=== PATIENT | male | born 1965 | race Two or more races ===

== ENCOUNTER 2023-09-11 15:05 | Emergency (ER) | payer OTHER ==
[~2023-09-11] VITALS: Ht 170.2 cm; Wt 90.7 kg
[2023-09-11 15:23] VITALS: TEMP 98
[2023-09-11] MEDS ORDERED: KETOROLAC TROMETHAMINE INJ 30 MG/ML VIAL ONE (17:22)
[2023-09-11] MEDS ORDERED: KETOROLAC TROMETHAMINE INJ 30 MG/ML VIAL IM ONE (17:30)
[2023-09-11 18:45] LABS: APPEARANCE,URINE CLEAR (CLEAR); BILIRUBIN,URINE NEGATIVE (NEGATIVE); BLOOD, URINE NEGATIVE Ery/uL (NEGATIVE); COLOR,URINE YELLOW (YELLOW); KETONES,URINE NEGATIVE (NEGATIVE); LEUKOCYTE ESTERASE ,URINE NEGATIVE (NEGATIVE); NITRITE, URINE NEGATIVE (NEGATIVE); PH,URINE 5.5 (5.0-8.0); PROTEIN,URINE TRACE mg/dl (NEGATIVE); UGLUCOSE NEGATIVE (NEGATIVE); UROBILINOGEN,URINE 0.2 EU/dL (0.2)
[2023-09-11] MEDS ORDERED: IBUP-1955 PO (20:13)
[2023-09-11] MEDS ORDERED: ACET-2605 PO (20:13)
[2023-09-11] MEDS ORDERED: LIDOCAINE 5% (PATCH) 1 EA PATCH TP ONE ×2 (20:18→20:30)
[2023-09-11 21:50] LABS: ADD URINE CULTURE NO; BACTERIA,URINE 1+ /HPF (None Seen); HYALINE CASTS, URINE Few /LPF (None Seen); MUCUS,URINE Few /LPF (None Seen); RBC,URINE NONE SEEN /HPF (0-2); SQUAMOUS EPITHELIAL CELL,UR None Seen /HPF (None Seen); WBC,URINE NONE SEEN /HPF (0-3)
[2023-09-12 03:26] VITALS: BP 105/71; O2SAT 98
== END 2023-09-12 03:26 | disposition home or self-care (01) ==
LOC: ER 16:56
DX: S22.32XA Fracture of one rib, left side, initial encounter for closed fracture (principal); S22.31XA Fracture of one rib, right side, initial encounter for closed fracture; R33.9 Retention of urine, unspecified; G89.29 Other chronic pain; I10 Essential (primary) hypertension; F41.9 Anxiety disorder, unspecified; Z79.899 Other long term (current) drug therapy; Z88.1 Allergy status to other antibiotic agents; W17.89XA Other fall from one level to another, initial encounter; Y93.89 Activity, other specified; Y92.89 Other specified places as the place of occurrence of the external cause; Y99.8 Other external cause status
CPT/HCPCS: 99284; 51702; 72100; 71111; 81001; 96372; J1885

== ENCOUNTER 2023-09-17 17:01 | Inpatient (IN) | payer OTHER ==
[~2023-09-17] VITALS: Ht 170.2 cm; Wt 77.1 kg
[~2023-09-17 17:01] MED LIST: ACET-2605 PO; IBUP-1955 PO
[2023-09-17] MEDS ORDERED: HYDROCODONE/APAP 10/325MG TABLET PO ONE (19:30)
[2023-09-17 19:31] LABS: BASOPHILS % (AUTO) 0.3 % (0.0-2.0); EOSINOPHILS # (AUTO) 0.2 K/uL (0.0-0.7); EOSINOPHILS % (AUTO) 1.5 % (0.0-6.0); HEMATOCRIT 47 % (39-51); HEMOGLOBIN 15.9 g/dL (13.5-17.5); LYMPHOCYTES # (AUTO) 2.4 K/uL (0.8-4.8); LYMPHOCYTES % (AUTO) 22.6 % (20.0-44.0); MEAN CORPUSCULAR HEMOGLOBIN 31 PG (26.0-33.0); MEAN CORPUSCULAR HGB CONC 34 g/dl (31.0-36.0); MEAN CORPUSCULAR VOLUME 92 fL (80-96); MONOCYTES # (AUTO) 0.6 K/uL (0.1-1.30); MONOCYTES % (AUTO) 5.5 % (2.0-12.0); NEUTROPHILS # (AUTO) 7.4 K/uL (1.8-8.9); NEUTROPHILS % (AUTO) 70.1 % (43.0-81.0); PLATELET COUNT (AUTO) 314 K/uL (150-450); RED BLOOD CELL COUNT(AUTO) 5.06 MIL/uL (4.5-6.0); RED CELL DISTRIBUTION WIDTH 13.1 % (11.5-15.0); WHITE BLOOD COUNT (AUTO) 10.6 K/uL (4.3-11.0)
[2023-09-17] MEDS ORDERED: HYDROCODONE/APAP 10/325MG TABLET ONE (19:51)
[2023-09-17 19:55] LABS: INR 0.96 (0.91-1.10); PARTIAL THROMBOPLASTIN TIME 29.3 SEC (24.3-34.3); PROTHROMBIN TIME 10.2 SECS (9.2-11.1)
[2023-09-17 20:22] LABS: BILIRUBIN,DIRECT 0.1 mg/dL (0.0-0.2); BILIRUBIN,TOTAL 0.5 mg/dL (0.2-1.0); CALCIUM, SERUM 9.2 mg/dL (8.5-10.1); CREATININE 0.7 mg/dL (0.6-1.3); POTASSIUM 3.4 mmol/L (3.5-5.1); TOTAL PROTEIN, SERUM 8.6 g/dL (6.4-8.2)
[2023-09-17 21:39] LABS: APPEARANCE,URINE CLEAR (CLEAR); BILIRUBIN,URINE NEGATIVE (NEGATIVE); BLOOD, URINE 2+ Ery/uL (NEGATIVE); COLOR,URINE YELLOW (YELLOW); KETONES,URINE NEGATIVE (NEGATIVE); LEUKOCYTE ESTERASE ,URINE NEGATIVE (NEGATIVE); NITRITE, URINE POSITIVE (NEGATIVE); PH,URINE 5.5 (5.0-8.0); PROTEIN,URINE TRACE mg/dl (NEGATIVE); UGLUCOSE NEGATIVE (NEGATIVE); UROBILINOGEN,URINE 0.2 EU/dL (0.2)
[2023-09-17 21:46] LABS: ADD URINE CULTURE YES; BACTERIA,URINE 1+ /HPF (None Seen); RBC,URINE 21-50 /HPF (0-2)
[2023-09-17] MEDS ORDERED: CEFTRIAXONE 1 G VIAL IM ONE (22:30)
[2023-09-17] MEDS ORDERED: ONDANSETRON HCL/PF 4 MG/2 ML VIAL IVP PRN (23:00)
[2023-09-17] MEDS ORDERED: POTASSIUM CHLORIDE 10 MEQ TABLET.SA PO ONE (23:00)
[2023-09-17] MEDS ORDERED: Z GUARD REMEDY 4 OZ OINT TP PRN (23:00)
[2023-09-17] MEDS ORDERED: HYDROMORPHONE INJ 2 MG/ML DISP.SYRIN IV PRN (23:00)
[2023-09-17] MEDS ORDERED: ACETAMINOPHEN 325 MG TABLET PO PRN (23:00)
[2023-09-17] MEDS ORDERED: MAGNESIUM HYDROXIDE 30 ML UDC PO PRN (23:00)
[2023-09-17] MEDS ORDERED: LIDOCAINE /MPF 1% VIAL 5 ML VIAL ONE (23:10)
[2023-09-17] MEDS ORDERED: CEFTRIAXONE 1 G VIAL ONE (23:10)
[2023-09-17] MEDS ORDERED: CEFTRIAXONE 1GM BAG (ER ONLY) 50 ML IV ONE (23:22)
[2023-09-17] MEDS: CEFTRIAXONE 1 G in IV D5W 50 ML IV SCH (23:25)
[2023-09-17] MEDS ORDERED: HYDROMORPHONE 1 MG/1 ML DISP.SYRIN ONE (23:48)
[2023-09-17] MEDS ORDERED: POTASSIUM CHLORIDE 10 MEQ TABLET.SA ONE (23:58)
[2023-09-17] MEDS ORDERED: GABAPENTIN 100 MG CAPSULE ONE (23:58)
[2023-09-17] MEDS ORDERED: ENOXAPARIN SODIUM 40 MG/0.4 ML DISP.SYRIN SQ ONE (23:58)
[2023-09-18] MEDS: GABAPENTIN 100 MG CAPSULE PO SCH ×4 (00:03→16:20)
[2023-09-18] MEDS: ENOXAPARIN SODIUM 40 MG/0.4 ML DISP.SYRIN SQ SCH ×2 (00:08→20:05)
[2023-09-18] MEDS: NICOTINE PATCH (21MG) 21 MG PATCH.TD24 TD SCH ×2 (02:06→09:00)
[2023-09-18] MEDS ORDERED: HYDROMORPHONE 1 MG/1 ML DISP.SYRIN ONE ×2 (04:03→08:36)
[2023-09-18] MEDS ORDERED: HYDROMORPHONE 1 MG/1 ML DISP.SYRIN IV PRN (07:30)
[2023-09-18] MEDS: PANTOPRAZOLE 40 MG TABLET.DR PO SCH (08:30)
[2023-09-18] MEDS ORDERED: GABAPENTIN 100 MG CAPSULE ONE (08:33)
[2023-09-18] MEDS ORDERED: PANTOPRAZOLE 40 MG TABLET.DR PO ONE (08:34)
[2023-09-18] MEDS ORDERED: AMLO5TAB4 PO (08:45)
[2023-09-18] MEDS ORDERED: LORA-258 PO (08:45)
[2023-09-18 09:11] LABS: BASOPHILS % (AUTO) 0.5 % (0.0-2.0); EOSINOPHILS # (AUTO) 0.1 K/uL (0.0-0.7); EOSINOPHILS % (AUTO) 1.6 % (0.0-6.0); HEMATOCRIT 40 % (39-51); HEMOGLOBIN 13.7 g/dL (13.5-17.5); LYMPHOCYTES # (AUTO) 2.3 K/uL (0.8-4.8); LYMPHOCYTES % (AUTO) 27.8 % (20.0-44.0); MEAN CORPUSCULAR HEMOGLOBIN 32 PG (26.0-33.0); MEAN CORPUSCULAR HGB CONC 34 g/dl (31.0-36.0); MEAN CORPUSCULAR VOLUME 92 fL (80-96); MONOCYTES # (AUTO) 0.8 K/uL (0.1-1.30); MONOCYTES % (AUTO) 9.4 % (2.0-12.0); NEUTROPHILS % (AUTO) 60.7 % (43.0-81.0); PLATELET COUNT (AUTO) 245 K/uL (150-450); RED BLOOD CELL COUNT(AUTO) 4.34 MIL/uL (4.5-6.0); WHITE BLOOD COUNT (AUTO) 8.2 K/uL (4.3-11.0)
[2023-09-18 09:21] LABS: CALCIUM, SERUM 9.1 mg/dL (8.5-10.1); CREATININE 0.7 mg/dL (0.6-1.3); MAGNESIUM 1.7 mg/dL (1.8-2.4); PHOSPHORUS 2.6 mg/dL (2.5-4.9)
[2023-09-18] MEDS ORDERED: LORAZEPAM 0.5 MG TABLET PO PRN (10:30)
[2023-09-18] MEDS: BACLOFEN (10 MG) 10 MG TABLET PO SCH ×2 (12:42→16:20)
[2023-09-18] MEDS: HYDROMORPHONE 1 MG/1 ML DISP.SYRIN IV PRN ×3 (13:24→21:47)
[2023-09-18 15:49] VITALS: BP 159/87; TEMP 99; O2SAT 95
[2023-09-18 20:00] VITALS: BP 120/82; TEMP 98; O2SAT 96
[2023-09-18] MEDS ORDERED: POTASSIUM CHLORIDE 20 MEQ TAB.PRT.SR PO ONE (20:00)
[2023-09-18] MEDS: CEFTRIAXONE 1 G in IV D5W 50 ML IV SCH (20:37)
[2023-09-19] MEDS: HYDROMORPHONE 1 MG/1 ML DISP.SYRIN IV PRN ×5 (01:47→21:11)
[2023-09-19 07:10] LABS: CALCIUM, SERUM 9.5 mg/dL (8.5-10.1); CREATININE 0.7 mg/dL (0.6-1.3); POTASSIUM 3.6 mmol/L (3.5-5.1)
[2023-09-19 07:17] LABS: BASOPHILS % (AUTO) 0.7 % (0.0-2.0); EOSINOPHILS # (AUTO) 0.2 K/uL (0.0-0.7); EOSINOPHILS % (AUTO) 2.9 % (0.0-6.0); HEMATOCRIT 38 % (39-51); HEMOGLOBIN 13.1 g/dL (13.5-17.5); LYMPHOCYTES # (AUTO) 2.2 K/uL (0.8-4.8); LYMPHOCYTES % (AUTO) 32.4 % (20.0-44.0); MEAN CORPUSCULAR HEMOGLOBIN 32 PG (26.0-33.0); MEAN CORPUSCULAR HGB CONC 35 g/dl (31.0-36.0); MEAN CORPUSCULAR VOLUME 92 fL (80-96); MONOCYTES # (AUTO) 0.8 K/uL (0.1-1.30); NEUTROPHILS # (AUTO) 3.5 K/uL (1.8-8.9); PLATELET COUNT (AUTO) 224 K/uL (150-450); RED BLOOD CELL COUNT(AUTO) 4.12 MIL/uL (4.5-6.0); WHITE BLOOD COUNT (AUTO) 6.6 K/uL (4.3-11.0)
[2023-09-19 07:30] VITALS: BP 164/93; TEMP 98.6; O2SAT 93
[2023-09-19] MEDS: PANTOPRAZOLE 40 MG TABLET.DR PO SCH (07:53)
[2023-09-19] MEDS: GABAPENTIN 100 MG CAPSULE PO SCH ×3 (08:18→17:08)
[2023-09-19] MEDS: BACLOFEN (10 MG) 10 MG TABLET PO SCH ×3 (08:18→17:09)
[2023-09-19] MEDS: NICOTINE PATCH (21MG) 21 MG PATCH.TD24 TD SCH (08:18)
[2023-09-19] MEDS: AMLODIPINE BESYLATE 5 MG TABLET PO SCH (08:18)
[2023-09-19] MEDS: HYDROCODONE/APAP 5/325MG TABLET PO PRN ×2 (09:54→23:12)
[2023-09-19] MEDS ORDERED: CLONIDINE HCL 0.1 MG TABLET PO PRN (10:00)
[2023-09-19 20:00] VITALS: BP 136/87; TEMP 98.3; O2SAT 97
[2023-09-19] MEDS: ENOXAPARIN SODIUM 40 MG/0.4 ML DISP.SYRIN SQ SCH (20:14)
[2023-09-20] MEDS: HYDROMORPHONE 1 MG/1 ML DISP.SYRIN IV PRN ×5 (02:25→19:04)
[2023-09-20] MEDS: GABAPENTIN 100 MG CAPSULE PO SCH ×3 (08:07→16:56)
[2023-09-20] MEDS: NICOTINE PATCH (21MG) 21 MG PATCH.TD24 TD SCH (08:07)
[2023-09-20] MEDS: PANTOPRAZOLE 40 MG TABLET.DR PO SCH (08:08)
[2023-09-20] MEDS: BACLOFEN (10 MG) 10 MG TABLET PO SCH ×3 (08:08→16:55)
[2023-09-20] MEDS: AMLODIPINE BESYLATE 5 MG TABLET PO SCH (08:08)
[2023-09-20 08:36] VITALS: BP 136/97; TEMP 98.1; O2SAT 94
[2023-09-20 11:52] LABS: BASOPHILS % (AUTO) 0.3 % (0.0-2.0); EOSINOPHILS # (AUTO) 0.3 K/uL (0.0-0.7); EOSINOPHILS % (AUTO) 4.4 % (0.0-6.0); HEMATOCRIT 37 % (39-51); HEMOGLOBIN 12.8 g/dL (13.5-17.5); LYMPHOCYTES # (AUTO) 1.7 K/uL (0.8-4.8); LYMPHOCYTES % (AUTO) 28.9 % (20.0-44.0); MEAN CORPUSCULAR HEMOGLOBIN 32 PG (26.0-33.0); MEAN CORPUSCULAR HGB CONC 35 g/dl (31.0-36.0); MEAN CORPUSCULAR VOLUME 92 fL (80-96); MONOCYTES # (AUTO) 0.8 K/uL (0.1-1.30); NEUTROPHILS # (AUTO) 3.1 K/uL (1.8-8.9); NEUTROPHILS % (AUTO) 53.4 % (43.0-81.0); PLATELET COUNT (AUTO) 202 K/uL (150-450); RED CELL DISTRIBUTION WIDTH 12.9 % (11.5-15.0); WHITE BLOOD COUNT (AUTO) 5.9 K/uL (4.3-11.0)
[2023-09-20 13:19] LABS: CREATININE 0.7 mg/dL (0.6-1.3); POTASSIUM 3.4 mmol/L (3.5-5.1)
[2023-09-20] MEDS ORDERED: POTASSIUM CHLORIDE 20 MEQ TAB.PRT.SR PO ONE (14:00)
[2023-09-20 16:25] VITALS: BP 124/80; TEMP 98.1; O2SAT 95
[2023-09-20 20:00] VITALS: BP 135/89; TEMP 98.4; O2SAT 96
[2023-09-20] MEDS: CEFTRIAXONE 1 G in IV D5W 50 ML IV SCH (20:06)
[2023-09-20] MEDS: ENOXAPARIN SODIUM 40 MG/0.4 ML DISP.SYRIN SQ SCH (20:09)
[2023-09-20] MEDS: HYDROCODONE/APAP 5/325MG TABLET PO PRN (21:15)
== END 2023-09-20 23:00 | disposition short-term general hospital (02) | DRG 48 ==
LOC: ER 18:01 → TRANSITION 23:30 → MED 09-18 09:37
PROVIDERS: ADMIT Nurse Practitioner Family; ATTEND Internal Medicine
DX: G83.4 Cauda equina syndrome (principal); E87.6 Hypokalemia; F41.9 Anxiety disorder, unspecified; N39.0 Urinary tract infection, site not specified; I10 Essential (primary) hypertension; R32 Unspecified urinary incontinence; R20.2 Paresthesia of skin; G62.9 Polyneuropathy, unspecified; M62.830 Muscle spasm of back; B96.89 Other specified bacterial agents as the cause of diseases classified elsewhere; M43.16 Spondylolisthesis, lumbar region; M54.16 Radiculopathy, lumbar region; G99.2 Myelopathy in diseases classified elsewhere; Z87.891 Personal history of nicotine dependence; M96.1 Postlaminectomy syndrome, not elsewhere classified; Y83.8 Other surgical procedures as the cause of abnormal reaction of the patient, or of later complication, without mention of misadventure at the time of the procedure; Y75.8 Miscellaneous neurological devices associated with adverse incidents, not elsewhere classified; Y92.009 Unspecified place in unspecified non-institutional (private) residence as the place of occurrence of the external cause; G89.29 Other chronic pain; Z98.1 Arthrodesis status
CPT/HCPCS: 36415; 72125-TC; 72128-TC; 72131-TC; 72141-TC; 72146-TC; 72148-TC; 80048-TC; 80076-TC; 81001; 83735-TC; 84100-TC; 85025-TC; 85730-TC; 87086-TC; A4223; G0378; J0696; J1170; J1650; J2405; J3490; J7050; J7060

== ENCOUNTER 2023-09-25 10:02 | Inpatient (IN) | payer OTHER ==
[~2023-09-25] VITALS: Ht 170.2 cm; Wt 80.7 kg
[~2023-09-25 10:02] MED LIST changes: -ACET-2605 PO; +AMLO5TAB4 PO; -IBUP-1955 PO; +LORA-258 PO
[2023-09-25] MEDS ORDERED: POLYETHYLENE GLYCOL 3350 17 GM POWD.PACK PO PRN (22:00)
[2023-09-25] MEDS ORDERED: Z GUARD REMEDY 4 OZ OINT TP PRN (22:00)
[2023-09-25] MEDS ORDERED: MAG HYDROX/AL HYDROX/SIMETH 30 ML UDC PO PRN (22:00)
[2023-09-25] MEDS ORDERED: ONDANSETRON HCL/PF 4 MG/2 ML VIAL IVP PRN (22:00)
[2023-09-25] MEDS ORDERED: LACTULOSE 10 G/15 ML UDC (PYXIS) PO PRN (22:00)
[2023-09-25] MEDS ORDERED: TRAZODONE 50 MG TABLET PO PRN (22:00)
[2023-09-25] MEDS ORDERED: ZOLPIDEM TARTRATE 5 MG TABLET PO PRN (22:00)
[2023-09-25] MEDS ORDERED: ACETAMINOPHEN 325 MG TABLET PO PRN (22:00)
[2023-09-25 22:40] VITALS: BP 124/71; TEMP 98.4; O2SAT 96
[2023-09-25] MEDS: TAMSULOSIN 0.4 MG CAP.SR.24H PO SCH (22:48)
[2023-09-25] MEDS: LACTULOSE 10 G/15 ML UDC (PYXIS) PO ONE (22:48)
[2023-09-25] MEDS: HYDROMORPHONE INJ 2 MG/ML DISP.SYRIN IV PRN (23:41)
[2023-09-26] MEDS: HYDROCODONE/APAP 10/325MG TABLET PO PRN ×2 (06:29→17:14)
[2023-09-26 07:00] VITALS: BP 134/74; TEMP 96.2; O2SAT 95
[2023-09-26 07:27] LABS: BASOPHILS % (AUTO) 0.3 % (0.0-2.0); EOSINOPHILS # (AUTO) 0.2 K/uL (0.0-0.7); EOSINOPHILS % (AUTO) 2.9 % (0.0-6.0); HEMATOCRIT 37 % (39-51); HEMOGLOBIN 12.7 g/dL (13.5-17.5); LYMPHOCYTES # (AUTO) 1.7 K/uL (0.8-4.8); MEAN CORPUSCULAR HEMOGLOBIN 32 PG (26.0-33.0); MEAN CORPUSCULAR HGB CONC 34 g/dl (31.0-36.0); MEAN CORPUSCULAR VOLUME 93 fL (80-96); MONOCYTES # (AUTO) 0.8 K/uL (0.1-1.30); NEUTROPHILS # (AUTO) 3.9 K/uL (1.8-8.9); NEUTROPHILS % (AUTO) 58.8 % (43.0-81.0); PLATELET COUNT (AUTO) 192 K/uL (150-450); RED BLOOD CELL COUNT(AUTO) 3.95 MIL/uL (4.5-6.0); RED CELL DISTRIBUTION WIDTH 13.3 % (11.5-15.0); WHITE BLOOD COUNT (AUTO) 6.7 K/uL (4.3-11.0)
[2023-09-26 07:28] LABS: CALCIUM, SERUM 9.2 mg/dL (8.5-10.1); CREATININE 0.7 mg/dL (0.6-1.3); MAGNESIUM 1.8 mg/dL (1.8-2.4); PHOSPHORUS 3.8 mg/dL (2.5-4.9); POTASSIUM 3.8 mmol/L (3.5-5.1)
[2023-09-26] MEDS: FINASTERIDE (5 MG) 5 MG TABLET PO SCH (08:19)
[2023-09-26] MEDS: BACLOFEN (10 MG) 10 MG TABLET PO SCH (08:19)
[2023-09-26] MEDS: GABAPENTIN 300 MG CAPSULE PO SCH (08:19)
[2023-09-26] MEDS: PANTOPRAZOLE 40 MG TABLET.DR PO SCH (08:19)
[2023-09-26] MEDS: ESCITALOPRAM OXALATE (10 MG) 10 MG TABLET PO SCH (08:20)
[2023-09-26] MEDS: AMLODIPINE BESYLATE 5 MG TABLET PO SCH (08:23)
[2023-09-26] MEDS ORDERED: HYDR50TA61 PO (08:31)
[2023-09-26] MEDS ORDERED: FINA5TAB11 PO (08:31)
[2023-09-26] MEDS ORDERED: GABA600T12 PO (08:31)
[2023-09-26] MEDS ORDERED: ESCI20TA PO (08:31)
[2023-09-26] MEDS ORDERED: HYDR-3980 PO (08:31)
[2023-09-26] MEDS ORDERED: TRAZ-182 PO (08:31)
[2023-09-26] MEDS ORDERED: TAMS-12 PO (08:31)
[2023-09-26] MEDS ORDERED: TRAZODONE 50 MG TABLET PO PRN (13:30)
[2023-09-26] MEDS ORDERED: HYDROCODONE/APAP 10/325MG TABLET PO PRN (13:30)
[2023-09-26] MEDS ORDERED: LORAZEPAM 0.5 MG TABLET PO PRN (13:30)
[2023-09-26] MEDS ORDERED: Medication Not On Formulary EA (Gabapentin 600 MG) PO PRN (13:30)
[2023-09-26] MEDS: PROSOURCE / PROSTAT (PYXIS) 30 ML UDC PO SCH (13:37)
[2023-09-26] MEDS ORDERED: hydrOXYzine PAMOATE 25 MG CAPSULE PO PRN (14:00)
[2023-09-26 16:00] VITALS: BP 123/68; TEMP 97.7; O2SAT 96
[2023-09-26] MEDS ORDERED: MINERAL OIL/PETROL OINT 396 GM JAR TP PRN (18:00)
[2023-09-26 20:00] VITALS: BP 110/72; TEMP 97.3; O2SAT 95
[2023-09-26] MEDS: MAGNESIUM HYDROXIDE 30 ML UDC PO PRN (21:47)
[2023-09-26] MEDS: TAMSULOSIN 0.4 MG CAP.SR.24H PO SCH (21:47)
[2023-09-27 07:00] VITALS: BP 105/73; TEMP 97.9; O2SAT 94
[2023-09-27 07:03] LABS: BASOPHILS % (AUTO) 0.3 % (0.0-2.0); EOSINOPHILS # (AUTO) 0.2 K/uL (0.0-0.7); EOSINOPHILS % (AUTO) 2.4 % (0.0-6.0); HEMATOCRIT 40 % (39-51); HEMOGLOBIN 13.5 g/dL (13.5-17.5); LYMPHOCYTES # (AUTO) 1.6 K/uL (0.8-4.8); LYMPHOCYTES % (AUTO) 24.5 % (20.0-44.0); MEAN CORPUSCULAR HEMOGLOBIN 31 PG (26.0-33.0); MEAN CORPUSCULAR HGB CONC 34 g/dl (31.0-36.0); MEAN CORPUSCULAR VOLUME 93 fL (80-96); MONOCYTES # (AUTO) 0.8 K/uL (0.1-1.30); MONOCYTES % (AUTO) 11.6 % (2.0-12.0); NEUTROPHILS # (AUTO) 4.1 K/uL (1.8-8.9); NEUTROPHILS % (AUTO) 61.2 % (43.0-81.0); PLATELET COUNT (AUTO) 222 K/uL (150-450); RED BLOOD CELL COUNT(AUTO) 4.29 MIL/uL (4.5-6.0); RED CELL DISTRIBUTION WIDTH 13.3 % (11.5-15.0); WHITE BLOOD COUNT (AUTO) 6.7 K/uL (4.3-11.0)
[2023-09-27 08:03] LABS: CALCIUM, SERUM 9.7 mg/dL (8.5-10.1); CREATININE 0.9 mg/dL (0.6-1.3); MAGNESIUM 2.3 mg/dL (1.8-2.4); PHOSPHORUS 3.8 mg/dL (2.5-4.9)
[2023-09-27] MEDS: AMLODIPINE BESYLATE 5 MG TABLET PO SCH (09:00)
[2023-09-27] MEDS: ESCITALOPRAM OXALATE (10 MG) 10 MG TABLET PO SCH (09:04)
[2023-09-27] MEDS: FINASTERIDE (5 MG) 5 MG TABLET PO SCH (09:05)
[2023-09-27 16:00] VITALS: BP 113/69; TEMP 97.7; O2SAT 97
[2023-09-27 20:17] VITALS: BP 127/71; TEMP 98.4; O2SAT 96
[2023-09-28 07:09] LABS: BASOPHILS % (AUTO) 0.4 % (0.0-2.0); EOSINOPHILS # (AUTO) 0.2 K/uL (0.0-0.7); EOSINOPHILS % (AUTO) 2.4 % (0.0-6.0); HEMATOCRIT 38 % (39-51); HEMOGLOBIN 13.1 g/dL (13.5-17.5); LYMPHOCYTES # (AUTO) 1.8 K/uL (0.8-4.8); LYMPHOCYTES % (AUTO) 23.9 % (20.0-44.0); MEAN CORPUSCULAR HEMOGLOBIN 32 PG (26.0-33.0); MEAN CORPUSCULAR HGB CONC 34 g/dl (31.0-36.0); MEAN CORPUSCULAR VOLUME 93 fL (80-96); MONOCYTES # (AUTO) 0.8 K/uL (0.1-1.30); MONOCYTES % (AUTO) 11.2 % (2.0-12.0); NEUTROPHILS # (AUTO) 4.6 K/uL (1.8-8.9); NEUTROPHILS % (AUTO) 62.1 % (43.0-81.0); PLATELET COUNT (AUTO) 215 K/uL (150-450); RED BLOOD CELL COUNT(AUTO) 4.12 MIL/uL (4.5-6.0); WHITE BLOOD COUNT (AUTO) 7.4 K/uL (4.3-11.0)
[2023-09-28 07:10] LABS: CALCIUM, SERUM 9.2 mg/dL (8.5-10.1); CREATININE 0.8 mg/dL (0.6-1.3); MAGNESIUM 2.2 mg/dL (1.8-2.4); PHOSPHORUS 3.7 mg/dL (2.5-4.9)
[2023-09-28 08:30] VITALS: BP 90/52; TEMP 98.5; O2SAT 96
[2023-09-28] MEDS: KETOROLAC TROMETHAMINE 15 MG/ML VIAL IV PRN (14:03)
[2023-09-28 16:00] VITALS: BP 127/77; TEMP 98.4; O2SAT 95
[2023-09-28] MEDS: GABAPENTIN 400 MG CAPSULE PO SCH (16:28)
[2023-09-28 20:00] VITALS: BP 127/77; TEMP 97.5; O2SAT 96
[2023-09-29 07:27] LABS: BASOPHILS # (AUTO) 0.1 K/uL (0.0-0.2); BASOPHILS % (AUTO) 1.1 % (0.0-2.0); EOSINOPHILS # (AUTO) 0.2 K/uL (0.0-0.7); EOSINOPHILS % (AUTO) 3.2 % (0.0-6.0); HEMATOCRIT 37 % (39-51); HEMOGLOBIN 12.7 g/dL (13.5-17.5); LYMPHOCYTES % (AUTO) 26.8 % (20.0-44.0); MEAN CORPUSCULAR HEMOGLOBIN 32 PG (26.0-33.0); MEAN CORPUSCULAR HGB CONC 34 g/dl (31.0-36.0); MEAN CORPUSCULAR VOLUME 95 fL (80-96); MONOCYTES # (AUTO) 0.9 K/uL (0.1-1.30); MONOCYTES % (AUTO) 11.3 % (2.0-12.0); NEUTROPHILS # (AUTO) 4.4 K/uL (1.8-8.9); NEUTROPHILS % (AUTO) 57.6 % (43.0-81.0); PLATELET COUNT (AUTO) 186 K/uL (150-450); RED BLOOD CELL COUNT(AUTO) 3.92 MIL/uL (4.5-6.0); RED CELL DISTRIBUTION WIDTH 13.3 % (11.5-15.0); WHITE BLOOD COUNT (AUTO) 7.7 K/uL (4.3-11.0)
[2023-09-29 07:59] LABS: CALCIUM, SERUM 8.8 mg/dL (8.5-10.1); CREATININE 0.7 mg/dL (0.6-1.3); MAGNESIUM 2.3 mg/dL (1.8-2.4); PHOSPHORUS 3.7 mg/dL (2.5-4.9)
[2023-09-29 08:00] VITALS: BP 111/68; TEMP 98.6; O2SAT 98
[2023-09-29 08:15] VITALS: BP 135/80
[2023-09-29] MEDS ORDERED: GABA-536 PO (13:37)
[2023-09-29] MEDS ORDERED: BACL10TA PO (13:37)
[2023-09-29] MEDS ORDERED: TRAM50TA2 PO (13:37)
[2023-09-29] MEDS ORDERED: TRAMADOL HCL 50 MG TABLET PO PRN (14:00)
== END 2023-09-29 17:00 | DRG 347 ==
LOC: TELE 20:27 → MED 22:30
PROVIDERS: ADMIT Nurse Practitioner Acute Care; ATTEND Student in an Organized Health Care Education/Training Program
PROC: 0HBRXZZ Excision of Toe Nail, External Approach (ICD-10-PCS; principal; 2023-09-26)
DX: M48.061 Spinal stenosis, lumbar region without neurogenic claudication (principal); G95.89 Other specified diseases of spinal cord; M43.16 Spondylolisthesis, lumbar region; F32.A Depression, unspecified; K21.9 Gastro-esophageal reflux disease without esophagitis; N40.0 Benign prostatic hyperplasia without lower urinary tract symptoms; F41.9 Anxiety disorder, unspecified; I10 Essential (primary) hypertension; F17.210 Nicotine dependence, cigarettes, uncomplicated; G62.9 Polyneuropathy, unspecified; K59.00 Constipation, unspecified; L80 Vitiligo; G89.29 Other chronic pain; Z88.5 Allergy status to narcotic agent
CPT/HCPCS: 36415; 80048-TC; 83735-TC; 84100-TC; 85025-TC; 97110-TC; 97530-TC; G0378; J1170; J1885